=== PATIENT | male | born 1985 | race Caucasian/White ===

== ENCOUNTER 2018-07-05 20:52 | Emergency (ER) | payer BC, SELFPAY ==
[2018-07-05 20:53] VITALS: BP 140/82; PULSE 68; RESP 18; TEMP 36.4; O2SAT 100; BMI 26.2
[2018-07-05 21:17] VITALS: BP 130/85; PULSE 63; RESP 16; O2SAT 99
[2018-07-05] MEDS: Diphth,Pertuss(Acell),Tet Vac 0.5 ML Vial IM (21:20)
--- NOTE | 2018-07-05 21:42 | ED.DCSUM_ITS ---
- ER Visit Summary Date of Service: 07/05/18 Chief Complaint: Left index finger laceration History of Present Illness: The patient is a 33 M who cut his left index finger on broken glass while he was recycling glassware. He is uncertain of his last tetanus update. He is right-hand dominant. Physical Examination: Vital signs unremarkable. Left upper extremity examination is significant for 2 cm laceration over the distal phalanx of the left index finger, wrapping around the ulnar side of the finger. He has full range of motion and sensation is intact distally. He has good cap refill. Test Results: [] Emergency Department Course and Treatment: Tetanus update is provided. Wound is anesthetized with 2 cc 1% lidocaine in a digital block. Wound is irrigated and skin is closed with 6 simple inverted sutures, 5-0 nylon. Dressing is applied and patient is to have sutures removed in 1 week. Treatment Plan: [] Disposition: Discharge Impression: Left index finger laceration status post suture This note was generated with [employer] dictation software. It may contain incorrect words, spelling, and punctuation that were not noted in review of the chart prior to signing ED Disposition - Plan for ED Patient: Chief Complaint: Laceration Referrals: Chato Davalos MD [Primary Care Provider] -
--- NOTE | 2018-07-05 21:42 | ED.DEP ---
ED Disposition - Plan for ED Patient: Disposition: Home or Assisted Living Chief Complaint: Laceration Instructions: ED Laceration Hand Referrals: Chato Davalos MD [Primary Care Provider] - 7 Days for suture removal
[2018-07-05 21:52] VITALS: BP 125/89; PULSE 61; RESP 16; O2SAT 99
== END 2018-07-05 21:53 | disposition home or self-care (01) ==
PROVIDERS: Emergency Provider Emergency Medicine; Family Provider Family Medicine; PCP Family Medicine
DX: S61.211A Laceration without foreign body of left index finger without damage to nail, initial encounter (principal); W25.XXXA Contact with sharp glass, initial encounter; Y93.9 Activity, unspecified; Y92.9 Unspecified place or not applicable; Y99.9 Unspecified external cause status; Z23 Encounter for immunization
CPT/HCPCS: 12001; 90715; 99283

== ENCOUNTER 2023-07-05 16:12 | Emergency (ER) | payer BC, SELFPAY ==
[2023-07-05 16:12] VITALS: BP 145/109; PULSE 57; RESP 18; TEMP 36.6; O2SAT 100; BMI 27.8
--- NOTE | 2023-07-05 16:55 | EX.ED.UPPERE ---
HPI History of Present Illness HPI Narrative: Patient presents with pain in his left shoulder, arm, elbow, and forearm that has been getting worse over the past week. Patient denies any trauma or injury. Patient states pain has been getting progressively worse. Patient states he went to an urgent care but states they would not prescribe him any painkillers. Patient states he attempted to call his primary care physician but since he has not seen them in several years, he would be a new patient and they would have to schedule him as a new patient. States his pain is worse with laying down. Patient states it is better with abduction. Patient admits to some numbness and tingling especially in the thumb of his left hand. Patient admits to some occasional weakness. Patient does admit to some pain in the left side of his neck. Chief Complaint: Upper Extremity Injury Informant: patient Onset/Context/Timing Onset: Weeks (1) Context: Gradual Onset Timing: Continuous Quality of Pain: Stabbing Location: Left neck, shoulder, arm, elbow, and forearm Worsened by: Laying down Relieved by: Abduction Associated Symptoms Associated Symptoms: Positive for Parasthesia and Weakness; Negative for Loss of Funtion PFSH PFSH Medical History no medical history no medical history Home Medications meloxicam 15 mg tablet 15 mg PO DAILY #14 tabs 07/05/23 [Rx Last Taken Unknown] tramadol 50 mg tablet 50 mg PO Q4H PRN PRN Pain 3 days #20 tabs 07/05/23 [Rx Last Taken Unknown] Allergy/AdvReac Type Severity Reaction Status Date / Time No Known Allergies Allergy Verified 07/05/23 16:14 Surgical History no surgical history no surgical history Social History Smoking Status: Never smoker ROS ROS ED Constitutional Constitutional ED: Denies chills or fever(s) Eyes Eyes: Denies blurry vision or change in vision ENT ENT ED: Denies rhinorrhea or sore throat Cardiovascular Cardiovascular: Denies chest pain or palpitations Respiratory/Chest Respiratory/Chest: Denies cough or dyspnea Gastrointestinal Gastrointestinal: Denies nausea or vomiting Genitourinary Genitourinary ED: Denies dysuria or hematuria Musculoskeletal Musculoskeletal: Reports neck pain; Denies back pain Integumentary Denies abscess or rash Neurologic Neurologic: Denies headache(s) or weakness Allergic/Immunologic Allergic/Immunologic ED: Denies mouth swelling or urticaria EXAM Physical Exam Const Vital Signs: 07/05/23 16:12 Temperature 97.8 F Temperature Source Temporal Pulse Rate 57 L Respiratory Rate 18 Blood Pressure 145/109 H Blood Pressure Mean 121 Pulse Ox 100 Oxygen Delivery Method Room Air Positive well nourished and well developed General Appearance ED: well developed and NAD HEENT Reports moist mucous membranes Neck supple and no JVD Back/Spine Back/Spine Narrative: There is mild tenderness over the left cervical paraspinal muscles. There is no midline tenderness. There is no bony crepitance or step-off noted. There is some reproducible pain with Spurling's test on the left. There is no edema or ecchymosis noted. Extremity normal to inspection Extremity Narrative: There is mild tenderness over the left shoulder area. There is also tenderness over the left trapezius muscle. There is no bony crepitance or step-off. There is no deformity noted. There is good range of motion of the upper extremities bilaterally. Strength is 5/5 bilaterally in the upper extremities. Sensation was intact to light touch in the radial, median, and ulnar areas. Radial pulses are equal bilaterally. General Extremety ED: Yes tenderness; Negative for edema General Extremity: Negative for edema Neuro oriented x3, CN's II-XII intact bilaterally and no sensory deficits noted Sensorium / Orientation: alert Motor Exam: strength 5/5 throughout Psych mental status grossly normal Skin no rashes or lesions noted MDM MDM MDM Narrative Medical decision making narrative: Patient was advised that this could be a cervical radiculopathy. Since there was no trauma or injury, I do not feel that any imaging is necessary at this time. The patient was given a prescription for meloxicam. Patient was also given a prescription for a short course of tramadol. Patient was instructed to follow-up with his primary care physician in 5 to 7 days. Patient was instructed return if worse in any way. Patient understood and was agreeable with the plan. All questions were answered. Discharge Plan Triage Chief Complaint: Upper Extremity Injury ED Provider: Richie Henry Dx/Rx/DC Orders Clinical Impression: Upper extremity pain, Cervical radiculopathy Instructions: ED Radiculopathy, Cervical, ED RICE Prescriptions: New tramadol 50 mg tablet 50 mg PO Q4H PRN PRN (Reason: Pain) 3 Days Qty: 20 0RF meloxicam 15 mg tablet 15 mg PO DAILY Qty: 14 0RF Primary Care Provider: Chato Davalos Referrals: Chato Davalos MD [Primary Care Provider] - 5-7 Days Disposition Disposition: Home, Self Care
== END 2023-07-05 17:13 | disposition home or self-care (01) ==
PROVIDERS: Emergency Provider Emergency Medicine; PCP Family Medicine; Visit Provider Emergency Medicine
DX: M54.12 Radiculopathy, cervical region (principal); M79.603 Pain in arm, unspecified; M25.512 Pain in left shoulder
CPT/HCPCS: 99282